=== PATIENT | male | born 1945 | race Caucasian/White ===

== ENCOUNTER 2018-03-15 16:12 | Inpatient (IN) | payer MEDICAID ==
[2018-03-15 17:59] LABS: BASO # 0.1 K/uL (0.0-0.2); BASO % 0.8 % (0.0-2.0); EOS # 0.5 K/uL (0.0-0.7); EOS % 7.5 % (0.0-4.0); HEMOGLOBIN 13.2 g/dL (12.0-18.0); LYMPH # 1.5 K/uL (1.0-4.3); LYMPH % 23.6 % (20.0-40.0); MEAN CELL VOLUME 84.8 fL (80.0-94.0); MEAN CORPUSCULAR HEMOGLOBIN 28.1 pg (27.0-31.0); MEAN CORPUSCULAR HGB CONC 33.2 g/dL (33.0-37.0); MEAN PLATELET VOLUME 6.8 fL (7.2-11.7); MONO # 0.7 K/uL (0.0-0.8); MONO % 10.7 % (0.0-10.0); NEUT # 3.7 K/uL (1.8-7.0); NEUT % 57.4 % (50.0-75.0); RBC 4.7 Mil/uL (4.40-5.90); RED CELL DISTRIBUTION WIDTH 12.3 % (11.5-14.5); WHITE BLOOD COUNT 6.4 K/uL (4.8-10.8)
[2018-03-15] MEDS ORDERED: Albuterol-Ipratrop 3 mg / 0.5 (3 ml) UD INH STA ×2 (18:08→20:34)
[2018-03-15 18:11] LABS: ALB/GLOB RATIO 1.1 (1.0-2.1); ALBUMIN 4.3 g/dL (3.5-5.0); ALT/SGPT 47 U/L (21-72); AST/SGOT 35 U/L (17-59); BLOOD UREA NITROGEN 13 mg/dL (9-20); CALCIUM 8.9 mg/dl (8.6-10.4); GFR AFRICAN-AMERICAN > 60; GFR NON-AFRICAN AMERICAN > 60
[2018-03-15] MEDS ORDERED: Albuterol-Ipratrop 3 mg / 0.5 (3 ml) UD ONE ×2 (18:14→20:45)
--- NOTE | 2018-03-15 18:16 | RAD ---
PROCEDURE: CHEST RADIOGRAPH, 1 VIEW HISTORY: SOB COMPARISON: None available. FINDINGS: LUNGS: Clear. PLEURA: No pneumothorax or pleural fluid seen. CARDIOVASCULAR: No radiographic findings to suggest acute or significant cardiovascular disease. OSSEOUS STRUCTURES: No significant abnormalities. VISUALIZED UPPER ABDOMEN: Normal. OTHER FINDINGS: None. IMPRESSION: No active disease.
[2018-03-15 18:24] LABS: B-TYPE NATRIURETIC PEPTIDE 71.8 pg/mL (0-900)
[2018-03-15 18:31] LABS: VENOUS BLOOD GAS BASE EXCESS -5.7 mmol/L (0.0-2.0); VENOUS BLOOD GAS PCO2 31 mmHg (40-60); VENOUS BLOOD GAS PO2 37 mm/Hg (30-55); VENOUS BLOOD PH 7.38 (7.32-7.43)
--- NOTE | 2018-03-15 19:10 | C.PDOC ---
History Of Present Illness <Gaudencio Morales R - Last Filed: 03/15/18 19:49> <Roberto Carranza N - Last Filed: 03/16/18 00:50> Mr Reeves is a 72 year old M with a PMHx of HTN who presents to the ER today with 1 week of abdominal discomfort, pleuritic chest pain and shortness of breath worse with ambulation. He also has had yellow sputum production during this time as well as nasal congestion. He denies fever, chills, nausea, vomiting , diarrhea. He denies recent travel. He states this is the first time he's had symptoms like this. Earlier today he went to see a PMD who advised him to go to the ER. PMHx: HTN PSHx: denies All: denies Medication: Amlodopine FamHx: denies SocialHx: denies tobacco hx, alcohol use (Gaudencio Morales) History Per: Patient History/Exam Limitations: no limitations Onset/Duration Of Symptoms: Days, Persistent Current Symptoms Are (Timing): Still Present Severity: Moderate Pain Scale Rating Of: 4 Recent travel outside of the [place]: No <Gaudencio Morales R - Last Filed: 03/15/18 19:49> <Roberto Carranza N - Last Filed: 03/16/18 00:50> Time Seen by Provider: 03/15/18 17:38 Chief Complaint (Nursing): Shortness Of Breath Past Medical History - Medical History PMH: No Chronic Diseases, HTN (Given meds today - not before) Denies: Chronic Kidney Disease Surgical History: No Surg Hx Family History: States: No Known Family Hx - Social History Hx Tobacco Use: No Hx Alcohol Use: No Hx Substance Use: No - Immunization History Hx Influenza Vaccination: No Hx Pneumococcal Vaccination: No <Gaudencio Morales - Last Filed: 03/15/18 19:49> Vital Signs: Last Vital Signs Temp 98.0 F 03/15/18 23:52 Pulse 98 H 03/15/18 23:52 Resp 18 03/15/18 23:52 BP 142/66 03/15/18 23:52 Pulse Ox 96 03/15/18 23:52 Review Of Systems Constitutional: Negative for: Fever, Chills, Sweats, Weakness, Malaise ENT: Positive for: Nose Congestion. Negative for: Ear Pain Cardiovascular: Positive for: Chest Pain. Negative for: Palpitations Respiratory: Positive for: Cough, Shortness of Breath, SOB with Excertion, Pleuritic Pain, Sputum. Negative for: Hemoptysis Gastrointestinal: Positive for: Abdominal Pain. Negative for: Nausea, Vomiting , Diarrhea, Constipation <Gaudencio Morales - Last Filed: 03/15/18 19:49> Physical Exam - Physical Exam Appears: Well, Non-toxic Skin: Normal Color Head: Atraumatic, Normacephalic Eye(s): bilateral: Normal Inspection, PERRL, EOMI Nose: Discharge Oral Mucosa: Moist Tongue: Normal Appearing Lips: Normal Appearing Teeth: Normal Dentition Throat: Normal Neck: Normal, Normal ROM Lymphatic: Normal Exam Chest: Symmetrical Cardiovascular: Rhythm Regular, No Friction Rub, No Murmur, No JVD Respiratory: Wheezing (bilateral wheezing) Gastrointestinal/Abdominal: Normal Exam, Bowel Sounds, Soft, No Tenderness Neurological/Psych: Oriented x3, Normal Speech, Normal Cognition <Gaudencio Morales R - Last Filed: 03/15/18 19:49> ED Course And Treatment - Laboratory Results Result Diagrams: 03/15/18 17:55 03/15/18 17:55 Lab Interpretation: Normal ECG Rhythm: Sinus Rhythm ECG Interpretation: Normal O2 Sat by Pulse Oximetry: 96 - Radiology CXR Interpretation: Yes: No Acute Disease Progress Note: Patient re-evaluated at 19:49 - patient still with wheezing. <Gaudencio Morales - Last Filed: 03/15/18 19:49> - Laboratory Results Result Diagrams: 03/15/18 17:55 03/15/18 17:55 <Roberto Carranza N - Last Filed: 03/16/18 00:50> Medical Decision Making <Gaudencio Morales - Last Filed: 03/15/18 19:49> <Roberto Carranza N - Last Filed: 03/16/18 00:50> Medical Decision Making: New onset wheezing without hx of asthma or COPD or smoking hx, suspicious for infectious process - we will treat with antibiotics and nebulizer treatment. (Gaudencio Morales) labs reviewed cxr reviewed - no obvious infiltrate rexam-continued wheezing ekg: NSR rate 87/pr-160/qrs-86/qt/qtc-378/454 no ischemic changes pt admitted to Dr. 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 Admitted to Dr. Ryan. Discussed case and put in consult for Dr. Bundy for infectious disease. (Roberto Carranza) Disposition <Gaudencio Morales R - Last Filed: 03/15/18 19:49> <Roberto Carranza - Last Filed: 03/16/18 00:50> - Disposition Disposition: HOSPITALIZED Condition: GOOD
[2018-03-15] MEDS ORDERED: Azithromycin 500 MG in Sodium Chloride 0.9% 250 ML IVPB STA (19:29)
[2018-03-15] MEDS ORDERED: cefTRIAXone IV 1 gm in Dextros 50 ML IVPB ONE (19:40)
[2018-03-15 19:43] LABS: URINE BILIRUBIN NEGATIVE (NEGATIVE); URINE CLARITY Clear (Clear); URINE COLOR Straw (YELLOW); URINE GLUCOSE (UA) NORMAL (Normal); URINE LEUKOCYTE ESTERASE NEG Leu/uL (Negative); URINE PROTEIN NEGATIVE (NEGATIVE); URINE UROBILINOGEN NORMAL mg/dL (0.2-1.0)
[2018-03-15 19:49] LABS: URINE BLOOD NEGATIVE (NEGATIVE)
[2018-03-15] MEDS ORDERED: Albuterol 0.042% Inhal Sol (1.25 mg/3 mL) UD INH STA (22:49)
[2018-03-16] MEDS ORDERED: Albuterol-Ipratrop 3 mg / 0.5 (3 ml) UD INH PRN (01:29)
[2018-03-16 08:22] VITALS: RESP 20
--- NOTE | 2018-03-16 09:25 | CP.PCM.HP ---
<Etelvina Gr - Last Filed: 03/16/18 10:34> History of Present Illness - History of Present Illness History of Present Illness: Medicine Note for Hospitalist Service - Dr. Oconnell CC: productive cough and chest discomfort HPI: Mr. Reeves is a 72 year old male with no significant past medical history who presented to the ED with shortness of breath, wheezing, and chest discomfort x 1 day. [facility] Lap #[id number] was used for [place]. Patient reports on day of admission he started to have subjective fevers, chills, productive cough with white phlegm, denied any blood in the sputum. He was at a gas station when he started to experience chest discomfort after coughing. He was instructed by friends to go to the hospital. Admits to sick contact, who has nasal and chest congestion, with a productive cough. Patient [place] been living in the [place]. Denied any recent travel, recent flu or pneumonia vaccine. Patient denies Denied fever, chills, headache, chest pain, abdominal pain, n/v/d/c or urinary symptoms. PMHx: Denied PSHx: Denied Meds: Denied Allergies: NKDA SHx: Denies Smoking, eoth use, illicit drug use FHx: Unremarkable Present on Admission - Present on Admission Any Indicators Present on Admission: No Past Patient History - Past Medical History & Family History Past Medical History?: Yes - Past Social History Smoking Status: Never Smoked - CARDIAC Hx Cardiac Disorders: Yes Hx Hypertension: Yes (Given meds today - not before) - PULMONARY Hx Respiratory Disorders: No - NEUROLOGICAL Hx Neurological Disorder: No - HEENT Hx HEENT Problems: No - RENAL Hx Chronic Kidney Disease: No - ENDOCRINE/METABOLIC Hx Endocrine Disorders: No - HEMATOLOGICAL/ONCOLOGICAL Hx Blood Disorders: No - INTEGUMENTARY Hx Dermatological Problems: No - MUSCULOSKELETAL/RHEUMATOLOGICAL Hx Falls: No - GASTROINTESTINAL Hx Gastrointestinal Disorders: No - GENITOURINARY/GYNECOLOGICAL Hx Genitourinary Disorders: No - PSYCHIATRIC Hx Substance Use: No - SURGICAL HISTORY Hx Surgeries: No - ANESTHESIA Hx Anesthesia: No Hx Anesthesia Reactions: No Hx Malignant Hyperthermia: No Has any member of the family had a problem w/ anesthesia?: No Meds Allergies/Adverse Reactions: Allergies Allergy/AdvReac Type Severity Reaction Status Date / Time No Known Allergies Allergy Verified 03/15/18 17:29 Physical Exam - Constitutional Appears: No Acute Distress - Head Exam Head Exam: NORMAL INSPECTION, NORMOCEPHALIC - Eye Exam Eye Exam: EOMI, Normal appearance, PERRL Pupil Exam: NORMAL ACCOMODATION - ENT Exam ENT Exam: Mucous Membranes Moist, Normal Exam - Neck Exam Neck exam: Positive for: Normal Inspection. Negative for: Tenderness, Thyromegaly - Respiratory Exam Respiratory Exam: Wheezes (faint wheezing noted bilaterally on lower lung bases ), NORMAL BREATHING PATTERN - Cardiovascular Exam Cardiovascular Exam: REGULAR RHYTHM - GI/Abdominal Exam GI & Abdominal Exam: Normal Bowel Sounds, Soft. absent: Distended, Tenderness - Rectal Exam Rectal Exam: Deferred - Extremities Exam Extremities exam: Positive for: normal inspection, pedal pulses present. Negative for: pedal edema, tenderness - Back Exam Back exam: NORMAL INSPECTION. absent: CVA tenderness (L), CVA tenderness (R) - Neurological Exam Neurological exam: Alert, CN II-XII Intact, Oriented x3 - Psychiatric Exam Psychiatric exam: Normal Affect, Normal Mood - Skin Skin Exam: Dry, Intact, Normal Color, Warm Results - Vital Signs Recent Vital Signs: Last Vital Signs Temp 97.2 F L 03/16/18 08:21 Pulse 93 H 03/16/18 08:21 Resp 20 03/16/18 08:21 BP 138/76 03/16/18 08:21 Pulse Ox 95 03/16/18 08:21 - Labs Result Diagrams: 03/15/18 17:55 03/15/18 17:55 Labs: Laboratory Results - last 24 hr 03/15/18 03/15/18 03/15/18 17:55 17:55 18:25 WBC 6.4 RBC 4.70 Hgb 13.2 Hct 39.8 MCV 84.8 MCH 28.1 MCHC 33.2 RDW 12.3 Plt Count 307 MPV 6.8 L Neut % (Auto) 57.4 Lymph % (Auto) 23.6 [place] % (Auto) 10.7 H Eos % (Auto) 7.5 H Baso % (Auto) 0.8 Neut # (Auto) 3.7 Lymph # (Auto) 1.5 [place] # (Auto) 0.7 Eos # (Auto) 0.5 Baso # (Auto) 0.1 D-Dimer, Quantitative pO2 37 VBG pH 7.38 VBG pCO2 31 L VBG HCO3 19.7 VBG Total CO2 19.3 L VBG O2 Sat (Calc) 78.6 H VBG Base Excess -5.7 L VBG Potassium 2.4 L* Glucose 70 L Lactate 0.9 Crit Value Called To Rani hernandez rn Crit Value Called By Gutierrez Crit Value Read Back Y Blood Gas Notified Time 183 Sodium 138 145.0 Potassium 4.1 Chloride 100 115.0 H Carbon Dioxide 25 Anion Gap 17 BUN 13 Creatinine 0.8 Est GFR ( Amer) > 60 Est GFR (Non-Af Amer) > 60 Random Glucose 98 Calcium 8.9 Magnesium 2.2 Total Bilirubin 0.8 AST 35 ALT 47 Alkaline Phosphatase 102 Troponin I < 0.0120 NT-Pro-B Natriuret Pep 71.8 Total Protein 8.2 Albumin 4.3 Globulin 3.9 Albumin/Globulin Ratio 1.1 Venous Blood Potassium 2.4 L* Urine Color Urine Clarity Urine pH Ur Specific [place] Urine Protein Urine Glucose (UA) Urine Ketones Urine Blood Urine Nitrate Urine Bilirubin Urine Urobilinogen Ur Leukocyte Esterase Urine WBC (Auto) 03/15/18 03/15/18 19:36 19:36 WBC RBC Hgb Hct MCV MCH MCHC RDW Plt Count MPV Neut % (Auto) Lymph % (Auto) [place] % (Auto) Eos % (Auto) Baso % (Auto) Neut # (Auto) Lymph # (Auto) [place] # (Auto) Eos # (Auto) Baso # (Auto) D-Dimer, Quantitative < 200 pO2 VBG pH VBG pCO2 VBG HCO3 VBG Total CO2 VBG O2 Sat (Calc) VBG Base Excess VBG Potassium Glucose Lactate Crit Value Called To Crit Value Called By Crit Value Read Back Blood Gas Notified Time Sodium Potassium Chloride Carbon Dioxide Anion Gap BUN Creatinine Est GFR ( Amer) Est GFR (Non-Af Amer) Random Glucose Calcium Magnesium Total Bilirubin AST ALT Alkaline Phosphatase Troponin I NT-Pro-B Natriuret Pep Total Protein Albumin Globulin Albumin/Globulin Ratio Venous Blood Potassium Urine Color Straw Urine Clarity Clear Urine pH 6.0 Ur Specific [place] 1.003 Urine Protein Negative Urine Glucose (UA) Normal Urine Ketones Negative Urine Blood Negative Urine Nitrate Negative Urine Bilirubin Negative Urine Urobilinogen Normal Ur Leukocyte Esterase Neg Urine WBC (Auto) < 1 Assessment & Plan - Assessment and Plan (Free Text) Assessment: Mr. Reeves is a 72 year old male with no significant past medical history who presented to the ED with shortness of breath, wheezing, and chest discomfort x 1 day. Admitted for suspected pneumonia, most likely acute bronchitis. Plan: Acute Bronchitis Afebrile, no leukocytosis, + sick contact HEENT exam benign. Faint wheezing noted bilaterally on lower lung bases, CXR: no active disease, no effusions or infiltrates noted F/U pneumonia labs --> less likely Azithromycin and Rocephin started will change to PO tomorrow Screening Follow up lipid, tsh, free t4, Hgba1c, EKG: NSR rate 87/pr-160/qrs-86/qt/qtc-378/454 Prophylactic Measures GI: pepcid DVT: lovenox Disposition: Anticipate discharge tomorrow with Albuterol, Z pack, and instructions to follow up with [facility]. DW Dr. Oconnell, Etelvina Gr DO, PGY1 <Vita Oconnell - Last Filed: 03/16/18 18:32> Results - Vital Signs Recent Vital Signs: Last Vital Signs Temp 98.2 F 03/16/18 16:00 Pulse 94 H 03/16/18 16:00 Resp 20 03/16/18 16:00 BP 121/9 L 03/16/18 16:00 Pulse Ox 95 03/16/18 16:00 - Labs Result Diagrams: 03/16/18 13:46 03/16/18 13:46 Labs: Laboratory Results - last 24 hr 03/15/18 03/15/18 03/15/18 18:25 19:36 19:36 WBC RBC Hgb Hct MCV MCH MCHC RDW Plt Count MPV Neut % (Auto) Lymph % (Auto) [place] % (Auto) Eos % (Auto) Baso % (Auto) Neut # (Auto) Lymph # (Auto) [place] # (Auto) Eos # (Auto) Baso # (Auto) D-Dimer, Quantitative < 200 pO2 37 VBG pH 7.38 VBG pCO2 31 L VBG HCO3 19.7 VBG Total CO2 19.3 L VBG O2 Sat (Calc) 78.6 H VBG Base Excess -5.7 L VBG Potassium 2.4 L* Sodium 145.0 Chloride 115.0 H Glucose 70 L Lactate 0.9 Crit Value Called To Rani hernandez rn Crit Value Called By Gutierrez Crit Value Read Back Y Blood Gas Notified Time 1831 Potassium Carbon Dioxide Anion Gap BUN Creatinine Est GFR ( Amer) Est GFR (Non-Af Amer) Random Glucose Hemoglobin A1c Calcium Phosphorus Magnesium Total Bilirubin AST ALT Alkaline Phosphatase Total Protein Albumin Globulin Albumin/Globulin Ratio Triglycerides Cholesterol LDL Cholesterol Direct HDL Cholesterol 25-OH Vitamin D Total Free T4 TSH 3rd Generation Venous Blood Potassium 2.4 L* Urine Color Straw Urine Clarity Clear Urine pH 6.0 Ur Specific [place] 1.003 Urine Protein Negative Urine Glucose (UA) Normal Urine Ketones Negative Urine Blood Negative Urine Nitrate Negative Urine Bilirubin Negative Urine Urobilinogen Normal Ur Leukocyte Esterase Neg Urine WBC (Auto) < 1 Influenza Typ A,B (EIA) 03/16/18 03/16/18 03/16/18 13:08 13:46 13:46 WBC 12.3 H D RBC 4.40 Hgb 12.2 Hct 37.4 MCV 85.0 MCH 27.7 MCHC 32.6 L RDW 12.5 Plt Count 314 MPV 7.1 L Neut % (Auto) 83.8 H Lymph % (Auto) 10.7 L [place] % (Auto) 5.4 Eos % (Auto) 0.0 Baso % (Auto) 0.1 Neut # (Auto) 10.4 H Lymph # (Auto) 1.3 [place] # (Auto) 0.7 Eos # (Auto) 0.0 Baso # (Auto) 0.0 D-Dimer, Quantitative pO2 VBG pH VBG pCO2 VBG HCO3 VBG Total CO2 VBG O2 Sat (Calc) VBG Base Excess VBG Potassium Sodium 138 Chloride 102 Glucose Lactate Crit Value Called To Crit Value Called By Crit Value Read Back Blood Gas Notified Time Potassium 4.6 Carbon Dioxide 22 Anion Gap 19 BUN 13 Creatinine 0.8 Est GFR ( Amer) > 60 Est GFR (Non-Af Amer) > 60 Random Glucose 172 H Hemoglobin A1c Calcium 8.8 Phosphorus 1.5 L Magnesium 2.2 Total Bilirubin 0.4 AST 28 ALT 30 Alkaline Phosphatase 76 Total Protein 7.5 Albumin 3.9 Globulin 3.5 Albumin/Globulin Ratio 1.1 Triglycerides 64 Cholesterol 194 LDL Cholesterol Direct 136 H HDL Cholesterol 40 25-OH Vitamin D Total Free T4 TSH 3rd Generation 1.59 Venous Blood Potassium Urine Color Urine Clarity Urine pH Ur Specific [place] Urine Protein Urine Glucose (UA) Urine Ketones Urine Blood Urine Nitrate Urine Bilirubin Urine Urobilinogen Ur Leukocyte Esterase Urine WBC (Auto) Influenza Typ A,B (EIA) Negative for flu a/b 03/16/18 03/16/18 03/16/18 13:46 13:46 13:46 WBC RBC Hgb Hct MCV MCH MCHC RDW Plt Count MPV Neut % (Auto) Lymph % (Auto) [place] % (Auto) Eos % (Auto) Baso % (Auto) Neut # (Auto) Lymph # (Auto) [place] # (Auto) Eos # (Auto) Baso # (Auto) D-Dimer, Quantitative pO2 VBG pH VBG pCO2 VBG HCO3 VBG Total CO2 VBG O2 Sat (Calc) VBG Base Excess VBG Potassium Sodium Chloride Glucose Lactate Crit Value Called To Crit Value Called By Crit Value Read Back Blood Gas Notified Time Potassium Carbon Dioxide Anion Gap BUN Creatinine Est GFR ( Amer) Est GFR (Non-Af Amer) Random Glucose Hemoglobin A1c 5.1 Calcium Phosphorus Magnesium Total Bilirubin AST ALT Alkaline Phosphatase Total Protein Albumin Globulin Albumin/Globulin Ratio Triglycerides Cholesterol LDL Cholesterol Direct HDL Cholesterol 25-OH Vitamin D Total 18.3 L Free T4 1.13 TSH 3rd Generation Venous Blood Potassium Urine Color Urine Clarity Urine pH Ur Specific [place] Urine Protein Urine Glucose (UA) Urine Ketones Urine Blood Urine Nitrate Urine Bilirubin Urine Urobilinogen Ur Leukocyte Esterase Urine WBC (Auto) Influenza Typ A,B (EIA) Attending/Attestation - Attestation I have personally seen and examined this patient.: Yes I have fully participated in the care of the patient.: Yes I have reviewed all pertinent clinical information: Yes Notes (Text): Seen and examined by me. 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 Acute bronchitis Discussed with the resident and I agree with the resident's documentation of the assessment and the plan
[2018-03-16] MEDS: cefTRIAXone IV 1 gm in Dextros 50 ML IVPB SCH (10:59)
[2018-03-16] MEDS: Enoxaparin 40 mg Syringe SC SCH (10:59)
[2018-03-16] MEDS: Azithromycin 500 MG in Sodium Chloride 0.9% 250 ML IVPB SCH (11:01)
[2018-03-16] MEDS: Albuterol-Ipratrop 3 mg / 0.5 (3 ml) UD INH SCH ×3 (11:31→20:20)
--- NOTE | 2018-03-16 12:50 | CARD ---
APPROVED REPORT EKG Measurement Heart [id number] <Conclusion> Normal sinus rhythm Normal ECG
[2018-03-16 14:03] LABS: BASO % 0.1 % (0.0-2.0); HEMOGLOBIN 12.2 g/dL (12.0-18.0); LYMPH # 1.3 K/uL (1.0-4.3); LYMPH % 10.7 % (20.0-40.0); MEAN CORPUSCULAR HEMOGLOBIN 27.7 pg (27.0-31.0); MEAN CORPUSCULAR HGB CONC 32.6 g/dL (33.0-37.0); MEAN PLATELET VOLUME 7.1 fL (7.2-11.7); MONO # 0.7 K/uL (0.0-0.8); MONO % 5.4 % (0.0-10.0); NEUT # 10.4 K/uL (1.8-7.0); NEUT % 83.8 % (50.0-75.0); RBC 4.4 Mil/uL (4.40-5.90); RED CELL DISTRIBUTION WIDTH 12.5 % (11.5-14.5)
[2018-03-16 14:04] LABS: WHITE BLOOD COUNT 12.3 K/uL (4.8-10.8)
[2018-03-16 14:16] LABS: ALB/GLOB RATIO 1.1 (1.0-2.1); ALBUMIN 3.9 g/dL (3.5-5.0); ALT/SGPT 30 U/L (21-72); AST/SGOT 28 U/L (17-59); BLOOD UREA NITROGEN 13 mg/dL (9-20); CALCIUM 8.8 mg/dl (8.6-10.4); GFR AFRICAN-AMERICAN > 60; GFR NON-AFRICAN AMERICAN > 60; HDL CHOLESTEROL 40 mg/dL (30-70)
[2018-03-16 14:19] LABS: LDL CHOLESTEROL 136 mg/dL (0-129)
[2018-03-16 23:24] VITALS: O2SAT 96
[2018-03-17] MEDS: Albuterol-Ipratrop 3 mg / 0.5 (3 ml) UD INH SCH ×4 (02:10→13:34)
[2018-03-17 07:41] VITALS: BP 143/84; PULSE 73; TEMP 97.6
[2018-03-17 08:00] LABS: BASO % 0.4 % (0.0-2.0); EOS # 0.4 K/uL (0.0-0.7); EOS % 3.2 % (0.0-4.0); HEMOGLOBIN 12.8 g/dL (12.0-18.0); LYMPH # 2.8 K/uL (1.0-4.3); LYMPH % 25.2 % (20.0-40.0); MEAN CELL VOLUME 84.8 fL (80.0-94.0); MONO # 0.7 K/uL (0.0-0.8); NEUT # 7.3 K/uL (1.8-7.0); NEUT % 65.2 % (50.0-75.0); NRBC % 0.1 % (0.0-2.0); RBC 4.57 Mil/uL (4.40-5.90); RED CELL DISTRIBUTION WIDTH 12.2 % (11.5-14.5); WHITE BLOOD COUNT 11.2 K/uL (4.8-10.8)
[2018-03-17] MEDS ORDERED: Albuterol-Ipratrop 3 mg / 0.5 (3 ml) UD INH STA (08:07)
[2018-03-17] MEDS ORDERED: Acetylcysteine 20% Inhal Soln (4ml) INH STA ×2 (08:07→09:12)
--- NOTE | 2018-03-17 08:14 | CP.PCM.DIS ---
<Etelvina Gr - Last Filed: 03/17/18 08:33> Provider - Provider Date of Admission: 03/15/18 23:17 Attending physician: Vita Oconnell MD Time Spent in preparation of Discharge (in minutes): 55 Diagnosis - Discharge Diagnosis (1) Bronchitis Status: Acute Hospital Course - Lab Results Lab Results: Most Recent Lab Values WBC 11.2 K/uL (4.8-10.8) H 03/17/18 07:43 RBC 4.57 Mil/uL (4.40-5.90) 03/17/18 07:43 Hgb 12.8 g/dL (12.0-18.0) 03/17/18 07:43 Hct 38.8 % (35.0-51.0) 03/17/18 07:43 MCV 84.8 fL (80.0-94.0) 03/17/18 07:43 MCH 28.0 pg (27.0-31.0) 03/17/18 07:43 MCHC 33.0 g/dL (33.0-37.0) 03/17/18 07:43 RDW 12.2 % (11.5-14.5) 03/17/18 07:43 Plt Count 347 K/uL (130-400) 03/17/18 07:43 MPV 7.0 fL (7.2-11.7) L 03/17/18 07:43 Neut % (Auto) 65.2 % (50.0-75.0) 03/17/18 07:43 Lymph % (Auto) 25.2 % (20.0-40.0) 03/17/18 07:43 [place] % (Auto) 6.0 % (0.0-10.0) 03/17/18 07:43 Eos % (Auto) 3.2 % (0.0-4.0) 03/17/18 07:43 Baso % (Auto) 0.4 % (0.0-2.0) 03/17/18 07:43 Neut # (Auto) 7.3 K/uL (1.8-7.0) H 03/17/18 07:43 Lymph # (Auto) 2.8 K/uL (1.0-4.3) 03/17/18 07:43 [place] # (Auto) 0.7 K/uL (0.0-0.8) 03/17/18 07:43 Eos # (Auto) 0.4 K/uL (0.0-0.7) 03/17/18 07:43 Baso # (Auto) 0.0 K/uL (0.0-0.2) 03/17/18 07:43 D-Dimer, Quantitative < 200 ng/mlDDU (0-243) 03/15/18 19:36 pO2 37 mm/Hg (30-55) 03/15/18 18:25 VBG pH 7.38 (7.32-7.43) 03/15/18 18:25 VBG pCO2 31 mmHg (40-60) L 03/15/18 18:25 VBG HCO3 19.7 mmol/L 03/15/18 18:25 VBG Total CO2 19.3 mmol/L (22-28) L 03/15/18 18:25 VBG O2 Sat (Calc) 78.6 % (40-65) H 03/15/18 18:25 VBG Base Excess -5.7 mmol/L (0.0-2.0) L 03/15/18 18:25 VBG Potassium 2.4 mmol/L (3.6-5.2) L* 03/15/18 18:25 Sodium 145.0 mmol/l (132-148) 03/15/18 18:25 Chloride 115.0 mmol/L (98-107) H 03/15/18 18:25 Glucose 70 mg/dl (75-110) L 03/15/18 18:25 Lactate 0.9 mmol/L (0.7-2.1) 03/15/18 18:25 Crit Value Called To Rani hernandez rn 03/15/18 18:25 Crit Value Called By Gutierrez 03/15/18 18:25 Crit Value Read Back Y 03/15/18 18:25 Blood Gas Notified Time 183003/15/18 18:25 Sodium 138 mmol/L (132-148) 03/16/18 13:46 Potassium 4.6 mmol/L (3.6-5.2) 03/16/18 13:46 Chloride 102 mmol/L (98-107) 03/16/18 13:46 Carbon Dioxide 22 mmol/L (22-30) 03/16/18 13:46 Anion Gap 19 (10-20) 03/16/18 13:46 BUN 13 mg/dL (9-20) 03/16/18 13:46 Creatinine 0.8 mg/dL (0.8-1.5) 03/16/18 13:46 Est GFR ( Amer) > 60 03/16/18 13:46 Est GFR (Non-Af Amer) > 60 03/16/18 13:46 Random Glucose 172 mg/dL (75-110) H 03/16/18 13:46 Hemoglobin A1c 5.1 % (4.2-6.5) 03/16/18 13:46 Calcium 8.8 mg/dl (8.6-10.4) 03/16/18 13:46 Phosphorus 1.5 mg/dL (2.5-4.5) L 03/16/18 13:46 Magnesium 2.2 mg/dL (1.6-2.3) 03/16/18 13:46 Total Bilirubin 0.4 mg/dL (0.2-1.3) 03/16/18 13:46 AST 28 U/L (17-59) 03/16/18 13:46 ALT 30 U/L (21-72) 03/16/18 13:46 Alkaline Phosphatase 76 U/L (38-126) 03/16/18 13:46 Troponin I < 0.0120 ng/mL (0.00-0.120) 03/15/18 17:55 NT-Pro-B Natriuret Pep 71.8 pg/mL (0-900) 03/15/18 17:55 Total Protein 7.5 g/dL (6.3-8.3) 03/16/18 13:46 Albumin 3.9 g/dL (3.5-5.0) 03/16/18 13:46 Globulin 3.5 gm/dL (2.2-3.9) 03/16/18 13:46 Albumin/Globulin Ratio 1.1 (1.0-2.1) 03/16/18 13:46 Triglycerides 64 mg/dL (0-149) 03/16/18 13:46 Cholesterol 194 mg/dL (0-199) 03/16/18 13:46 LDL Cholesterol Direct 136 mg/dL (0-129) H 03/16/18 13:46 HDL Cholesterol 40 mg/dL (30-70) 03/16/18 13:46 25-OH Vitamin D Total 18.3 NG/ML (30.0-100.0) L 03/16/18 13:46 Free T4 1.13 ng/dL (0.78-2.19) 03/16/18 13:46 TSH 3rd Generation 1.59 mIU/L (0.46-4.68) 03/16/18 13:46 Venous Blood Potassium 2.4 mmol/L (3.6-5.2) L* 03/15/18 18:25 Urine Color Straw (YELLOW) 03/15/18 19:36 Urine Clarity Clear (Clear) 03/15/18 19:36 Urine pH 6.0 (5.0-8.0) 03/15/18 19:36 Ur Specific [place] 1.003 (1.003-1.030) 03/15/18 19:36 Urine Protein Negative mg/dL (NEGATIVE) 03/15/18 19:36 Urine Glucose (UA) Normal mg/dL (Normal) 03/15/18 19:36 Urine Ketones Negative mg/dL (NEGATIVE) 03/15/18 19:36 Urine Blood Negative (NEGATIVE) 03/15/18 19:36 Urine Nitrate Negative (NEGATIVE) 03/15/18 19:36 Urine Bilirubin Negative (NEGATIVE) 03/15/18 19:36 Urine Urobilinogen Normal mg/dL (0.2-1.0) 03/15/18 19:36 Ur Leukocyte Esterase Neg Ruth Ann/uL (Negative) 03/15/18 19:36 Urine WBC (Auto) < 1 /hpf (0-5) 03/15/18 19:36 Influenza Typ A,B (EIA) Negative for flu a/b (NEGATIVE) 03/16/18 13:08 - Hospital Course Hospital Course: Upon Admission: CC: productive cough and chest discomfort HPI: Mr. Reeves is a 72 year old male with no significant past medical history who presented to the ED with shortness of breath, wheezing, and chest discomfort x 1 day. [id number] was used for [place]. Patient reports on day of admission he started to have subjective fevers, chills, productive cough with white phlegm, denied any blood in the sputum. He was at a gas station when he started to experience chest discomfort after coughing. He was instructed by friends to go to the hospital. Admits to sick contact, who has nasal and chest congestion, with a productive cough. Patient has been living in the [place] for 9 [place]. Denied any recent travel, recent flu or pneumonia vaccine. Patient denies Denied fever, chills, headache, chest pain, abdominal pain, n/v/d/c or urinary symptoms. PMHx: Denied PSHx: Denied Meds: Denied Allergies: NKDA SHx: Denies Smoking, eoth use, illicit drug use FHx: Unremarkable Throughout Hospital Course: Patient was admitted was for pneumonia - however after examination, it appears more as an acute bronchitis. Patient was given IV Abx and breathing treatments scheduled. He will be discharged with Z pack, medrol dose pack, albuterol inhaler, and vitamin D. All his labs where WNL otherwise. --- Below are the instructions for the patient: You will be taking the following medications: Ergocalciferol 50,000 units 1 pill once a week for a total of 6 months. This is for your Vitamind D deficiency (your vitamin D is very low (17). I have only provided you with 1 month supply. You will need to make an appointment with the [facility] to establish care and get refills. For you cough and congestion: You will be taking Azithromycin for 5 days, please take as directed on packet. You will be taking Methylprednisolone dose pack, please take as directed on packet. You can also use the Albuterol inhaler ONLY when needed, 2 puffs of the inhaler every 4 hours, ONLY when you are short of breath or wheezing. ( you may feel your heart racing after using this medication, it is a normal side effect). You have no issues with your cholesterol, sugar, or thyroid. Please make an appointment with the [facility] to establish care and for routine folllow up and to get refills for your Vitamin D pills. Please take care and be well. -- This is a brief summary of the patient's hospital course. Please review EMR for full record. Discharge Exam - Head Exam Head Exam: NORMAL INSPECTION, NORMOCEPHALIC - Eye Exam Eye Exam: EOMI, Normal appearance, PERRL Pupil Exam: NORMAL ACCOMODATION - ENT Exam ENT Exam: Mucous Membranes Moist, Normal Exam - Respiratory Exam Respiratory Exam: Clear to PA & Lateral, NORMAL BREATHING PATTERN - Cardiovascular Exam Cardiovascular Exam: REGULAR RHYTHM - GI/Abdominal Exam GI & Abdominal Exam: Normal Bowel Sounds, Soft. absent: Distended, Tenderness - Rectal Exam Rectal Exam: Deferred - Extremities Exam Extremities exam: normal inspection, pedal pulses present - Neurological Exam Neurological exam: Alert, Oriented x3 - Psychiatric Exam Psychiatric exam: Normal Affect, Normal Mood - Skin Skin Exam: Dry, Intact, Normal Color, Warm Discharge Plan - Discharge Medications Prescriptions: Albuterol Sulfate [Proair Hfa] 2 puff IH Q4H PRN #1 inh PRN Reason: Shortness Of Breath Azithromycin [Z-Jonathan] 250 mg PO DAILY #6 tab Ergocalciferol [Drisdol 50,000 Intl Units Cap] 1 cap PO Q7D #4 cap Guaifenesin [Mucinex] 600 mg PO Q12 #10 tab.er.12h Methylprednisolone [Medrol Dose Pack (21 tabs)] 4 mg PO DAILY #21 mg - Follow Up Plan Condition: GOOD Disposition: HOME/ ROUTINE Instructions: Heart Healthy Diet, Azithromycin (Systemic), Acute Bronchitis, Adult (DC), Pneumonia, Adult (DC), Albuterol, Ergocalciferol, Guaifenesin, Methylprednisolone Additional Instructions: You will be taking the following medications: Ergocalciferol 50,000 units 1 pill once a week for a total of 6 months. This is for your Vitamind D deficiency (your vitamin D is very low (17). I have only provided you with 1 month supply. You will need to make an appointment with the [facility] to establish care and get refills. For you cough and congestion: You will be taking Azithromycin for 5 days, please take as directed on packet. You will be taking Methylprednisolone dose pack, please take as directed on packet. You can also use the Albuterol inhaler ONLY when needed, 2 puffs of the inhaler every 4 hours, ONLY when you are short of breath or wheezing. ( you may feel your heart racing after using this medication, it is a normal side effect). You have no issues with your cholesterol, sugar, or thyroid. Please make an appointment with the [facility] to establish care and for routine folllow up and to get refills for your Vitamin D pills. Please take care and be well. --- Tameka sutherlandt' olimpia'' gonzales [facility] hvg: Airagklasphrala garcia 6 mahni' la' ika hafat vica ika vra ika gl denise. Iha tu vimina gha la' denise (tu vimina bahuta ghaa denise (17) emmie tuhn sirapha 1 mahni ' d sapal' d k pradna kt denise. Tuhn dkhabhla la' at rphila prpata karana la' nbarahua hailatha kalnika nla mulkta karana d zarrata h'g. Tuh la' khagha at [facility]: Tus 5 din la' azthrm'aleah gonzales [facility], paika t niradita michael d anusra kirap home. Tus maithalpradarasislna za paika gonzales jvg, kirap karak paika t niradita milagros. Tus tanisha sirapha la paia't sirapha ailabi'araula inhalara d varat ja sakad h, t mal 4 violeta' d jigna inhalara d 2 paphasa, tanisha tus sha laia vica ghaa h jnd h j gharara gharara d vza vica hud h. (Tus olimpia' d varat karana t b'ada pa dila d daua mahissa ja sakad h, iha ika sadhrana prabhva denise). Tuh kev, trevorara, j th'ir'ia nla k' samasi' nah denise. Kirap kartrevor nbarahua hailatha kalnika nla dkhabhla sathpata karana at rna phal apa la' at pa vimina gl' la' phrphal prpata karana la' apla milagros. Kirap karak sabhla milagros at cag tar'h [facility]. Referrals: [facility] at [facility] [Outside] <Vita Oconnell - Last Filed: 03/17/18 13:35> Provider - Provider Date of Admission: 03/15/18 23:17 Attending physician: Vita Oconnell MD Hospital Course - Lab Results Lab Results: Most Recent Lab Values WBC 11.2 K/uL (4.8-10.8) H 03/17/18 07:43 RBC 4.57 Mil/uL (4.40-5.90) 03/17/18 07:43 Hgb 12.8 g/dL (12.0-18.0) 03/17/18 07:43 Hct 38.8 % (35.0-51.0) 03/17/18 07:43 MCV 84.8 fL (80.0-94.0) 03/17/18 07:43 MCH 28.0 pg (27.0-31.0) 03/17/18 07:43 MCHC 33.0 g/dL (33.0-37.0) 03/17/18 07:43 RDW 12.2 % (11.5-14.5) 03/17/18 07:43 Plt Count 347 K/uL (130-400) 03/17/18 07:43 MPV 7.0 fL (7.2-11.7) L 03/17/18 07:43 Neut % (Auto) 65.2 % (50.0-75.0) 03/17/18 07:43 Lymph % (Auto) 25.2 % (20.0-40.0) 03/17/18 07:43 [place] % (Auto) 6.0 % (0.0-10.0) 03/17/18 07:43 Eos % (Auto) 3.2 % (0.0-4.0) 03/17/18 07:43 Baso % (Auto) 0.4 % (0.0-2.0) 03/17/18 07:43 Neut # (Auto) 7.3 K/uL (1.8-7.0) H 03/17/18 07:43 Lymph # (Auto) 2.8 K/uL (1.0-4.3) 03/17/18 07:43 [place] # (Auto) 0.7 K/uL (0.0-0.8) 03/17/18 07:43 Eos # (Auto) 0.4 K/uL (0.0-0.7) 03/17/18 07:43 Baso # (Auto) 0.0 K/uL (0.0-0.2) 03/17/18 07:43 D-Dimer, Quantitative < 200 ng/mlDDU (0-243) 03/15/18 19:36 pO2 37 mm/Hg (30-55) 03/15/18 18:25 VBG pH 7.38 (7.32-7.43) 03/15/18 18:25 VBG pCO2 31 mmHg (40-60) L 03/15/18 18:25 VBG HCO3 19.7 mmol/L 03/15/18 18:25 VBG Total CO2 19.3 mmol/L (22-28) L 03/15/18 18:25 VBG O2 Sat (Calc) 78.6 % (40-65) H 03/15/18 18:25 VBG Base Excess -5.7 mmol/L (0.0-2.0) L 03/15/18 18:25 VBG Potassium 2.4 mmol/L (3.6-5.2) L* 03/15/18 18:25 Sodium 145.0 mmol/l (132-148) 03/15/18 18:25 Chloride 115.0 mmol/L (98-107) H 03/15/18 18:25 Glucose 70 mg/dl (75-110) L 03/15/18 18:25 Lactate 0.9 mmol/L (0.7-2.1) 03/15/18 18:25 Crit Value Called To Rani hernandez rn 03/15/18 18:25 Crit Value Called By Gutierrez 03/15/18 18:25 Crit Value Read Back Y 03/15/18 18:25 Blood Gas Notified Time 18303/15/18 18:25 Sodium 142 mmol/L (132-148) 03/17/18 07:43 Potassium 4.2 mmol/L (3.6-5.2) 03/17/18 07:43 Chloride 103 mmol/L (98-107) 03/17/18 07:43 Carbon Dioxide 27 mmol/L (22-30) 03/17/18 07:43 Anion Gap 17 (10-20) 03/17/18 07:43 BUN 13 mg/dL (9-20) 03/17/18 07:43 Creatinine 0.9 mg/dL (0.8-1.5) 03/17/18 07:43 Est GFR ( Amer) > 60 03/17/18 07:43 Est GFR (Non-Af Amer) > 60 03/17/18 07:43 Random Glucose 103 mg/dL (75-110) 03/17/18 07:43 Hemoglobin A1c 5.1 % (4.2-6.5) 03/16/18 13:46 Calcium 9.1 mg/dl (8.6-10.4) 03/17/18 07:43 Phosphorus 3.2 mg/dL (2.5-4.5) 03/17/18 07:43 Magnesium 2.4 mg/dL (1.6-2.3) H 03/17/18 07:43 Total Bilirubin 0.7 mg/dL (0.2-1.3) 03/17/18 07:43 AST 31 U/L (17-59) 03/17/18 07:43 ALT 32 U/L (21-72) 03/17/18 07:43 Alkaline Phosphatase 78 U/L (38-126) 03/17/18 07:43 Troponin I < 0.0120 ng/mL (0.00-0.120) 03/15/18 17:55 NT-Pro-B Natriuret Pep 71.8 pg/mL (0-900) 03/15/18 17:55 Total Protein 7.6 g/dL (6.3-8.3) 03/17/18 07:43 Albumin 4.1 g/dL (3.5-5.0) 03/17/18 07:43 Globulin 3.4 gm/dL (2.2-3.9) 03/17/18 07:43 Albumin/Globulin Ratio 1.2 (1.0-2.1) 03/17/18 07:43 Triglycerides 64 mg/dL (0-149) 03/16/18 13:46 Cholesterol 194 mg/dL (0-199) 03/16/18 13:46 LDL Cholesterol Direct 136 mg/dL (0-129) H 03/16/18 13:46 HDL Cholesterol 40 mg/dL (30-70) 03/16/18 13:46 25-OH Vitamin D Total 18.3 NG/ML (30.0-100.0) L 03/16/18 13:46 Free T4 1.13 ng/dL (0.78-2.19) 03/16/18 13:46 TSH 3rd Generation 1.59 mIU/L (0.46-4.68) 03/16/18 13:46 Venous Blood Potassium 2.4 mmol/L (3.6-5.2) L* 03/15/18 18:25 Urine Color Straw (YELLOW) 03/15/18 19:36 Urine Clarity Clear (Clear) 03/15/18 19:36 Urine pH 6.0 (5.0-8.0) 03/15/18 19:36 Ur Specific [place] 1.003 (1.003-1.030) 03/15/18 19:36 Urine Protein Negative mg/dL (NEGATIVE) 03/15/18 19:36 Urine Glucose (UA) Normal mg/dL (Normal) 03/15/18 19:36 Urine Ketones Negative mg/dL (NEGATIVE) 03/15/18 19:36 Urine Blood Negative (NEGATIVE) 03/15/18 19:36 Urine Nitrate Negative (NEGATIVE) 03/15/18 19:36 Urine Bilirubin Negative (NEGATIVE) 03/15/18 19:36 Urine Urobilinogen Normal mg/dL (0.2-1.0) 03/15/18 19:36 Ur Leukocyte Esterase Neg Ruth Ann/uL (Negative) 03/15/18 19:36 Urine WBC (Auto) < 1 /hpf (0-5) 03/15/18 19:36 Influenza Typ A,B (EIA) Negative for flu a/b (NEGATIVE) 03/16/18 13:08 Ur L.pneumophila Ag Negative (NEGATIVE) 03/17/18 06:41 Attending/Attestation - Attestation I have personally seen and examined this patient.: Yes I have fully participated in the care of the patient.: Yes I have reviewed all pertinent clinical information, including history, physical exam and plan: Yes Notes (Text): Patient was seen and examined today. Feels better.Dischrge plan discussed with the patient. I agree with the resident's discharge recommendation
[2018-03-17 08:29] LABS: ALB/GLOB RATIO 1.2 (1.0-2.1); ALBUMIN 4.1 g/dL (3.5-5.0); ALT/SGPT 32 U/L (21-72); AST/SGOT 31 U/L (17-59); BLOOD UREA NITROGEN 13 mg/dL (9-20); CALCIUM 9.1 mg/dl (8.6-10.4); GFR AFRICAN-AMERICAN > 60; GFR NON-AFRICAN AMERICAN > 60
[2018-03-17] MEDS ORDERED: Ergocalciferol 50,000 Intl Units Cap PO SCH (10:00)
[2018-03-17] MEDS ORDERED: Potassium & Sodium Phosphate PO ONE (10:00)
[2018-03-17] MEDS: cefTRIAXone IV 1 gm in Dextros 50 ML IVPB SCH (10:12)
[2018-03-17] MEDS: Enoxaparin 40 mg Syringe SC SCH (10:13)
[2018-03-17] MEDS: Azithromycin 500 MG in Sodium Chloride 0.9% 250 ML IVPB SCH (10:13)
[2018-03-17] MEDS ORDERED: Pneumococcal 23-Valent Vaccine IM ONE (11:45)
== END 2018-03-17 14:58 | disposition home or self-care (01) | DRG 203 ==
LOC: C.ER 16:12 → EDBD 16:12 → UNDOADMIN 23:12 → C.9E 23:12 → C.3T 23:32
PROVIDERS: ADMIT Internal Medicine; ATTEND Internal Medicine
DX: J20.9 Acute bronchitis, unspecified (principal); I10 Essential (primary) hypertension